=== PATIENT | male | born 1960 | race Caucasian/White ===

== ENCOUNTER → 2024-03-10 | Day surgery (SDC) | payer BC ==
[~2024-03-10] MED LIST: ATENOLOL50 MG PO; CELEBREX200 MG PO; LIDOCAINE HCL 2% LOCAL INJ 5 ML SDV VIAL INJ ONE; PROPOFOL IV EMULSION 10 MG/ML 50 ML VIAL IV ONE; TRIBENZOR 40-11 EAC1 PO; Z.0.WELLBUTRIN SR150 PO; [UNRECOGNIZED DRUG - OTHER] PO
[2024-03-10] MEDS: LACTATED RINGER'S 1,000 ML ONE (08:59)
[2024-03-10 10:59] VITALS: TEMP 97.4
[2024-03-10 11:30] VITALS: BP 147/90; PULSE 78; RESP 16; O2SAT 96
== END | disposition home or self-care (01) ==
LOC: OR 08:51
PROVIDERS: ATTEND Internal Medicine Gastroenterology
DX: Z12.11 Encounter for screening for malignant neoplasm of colon (principal); K63.5 Polyp of colon; K62.1 Rectal polyp; K57.30 Diverticulosis of large intestine without perforation or abscess without bleeding; K64.8 Other hemorrhoids; Z71.3 Dietary counseling and surveillance; I10 Essential (primary) hypertension; Z71.89 Other specified counseling; E66.01 Morbid (severe) obesity due to excess calories; N20.0 Calculus of kidney; Z01.810 Encounter for preprocedural cardiovascular examination; Z79.899 Other long term (current) drug therapy; Z68.41 Body mass index [BMI] 40.0-44.9, adult; Z80.0 Family history of malignant neoplasm of digestive organs
CPT/HCPCS: 45380; 45385; 93005; J2001; J2704; J7121; 45378